=== PATIENT | male | born 1970 | race Caucasian/White ===

== ENCOUNTER 2019-01-26 13:40 | Outpatient (CLI) | payer OTHER ==
--- NOTE | 2019-01-26 14:49 | Diagnostic Imaging Report ---
COURTNEY BUTCHER [facility] [address] [facility] [address] [address] Report Submission Date: Jan 26, 2019 2:21:15 PM CROWN ATTACHER Patient Study Name: RUPERT MARAVILLA Date: Jan 26, 2019 1:54:56 PM CROWN ATTACHER Modality Type: DX Gender: M Description: FOOT 3 VIEWS OR MORE : 72 Institution: [facility] Physician: COURTNEY BUTCHER Examination: Plain film left foot History: Smashed left ankle and foot 2 days ago. swelling and pain increased today Findings: 3 views of the left foot demonstrates 1st digit articular degenerative changes. No fracture or dislocation. Calcaneal spurs. No soft tissue swelling. No joint effusion. Impression: Degenerative changes. No acute appearing cortical abnormality. Electronically signed on Jan 26, 2019 2:21:15 PM CROWN ATTACHER by: Jacinto GILLILAND
--- NOTE | 2019-01-26 14:50 | Diagnostic Imaging Report ---
COURTNEY BUTCHER [facility] [address] [facility] [address] [id number] Report Submission Date: Jan 26, 2019 2:22:25 PM FRONT OFFICE SPECIALIST Patient Study Name: RUPERT MARAVILLA Date: Jan 26, 2019 1:54:55 PM FRONT OFFICE SPECIALIST Modality Type: DX Gender: M Description: ANKLE 3 VIEWS OR MORE : 72 Institution: [facility] Physician: COURTNEY BUTCHER Examination: Plain film left ankle History: Smashed left ankle and foot 2 days ago. swelling and pain increased today. Findings: 3 views of the left ankle demonstrates normal cortical margins. No fracture or dislocation. Talar dome is intact. Calcaneal spurs. No soft tissue swelling. No joint effusion. Impression: No acute cortical abnormality. Electronically signed on Jan 26, 2019 2:22:25 PM FRONT OFFICE SPECIALIST by: Jacinto GILLILAND
== END 2019-01-26 13:42 ==
LOC: RAD 13:40
PROVIDERS: ATTEND Family Medicine
DX: M25.572 Pain in left ankle and joints of left foot (principal); M79.675 Pain in left toe(s)
CPT/HCPCS: 73610; 73630